=== PATIENT | male | born 1975 | race Caucasian/White ===

== ENCOUNTER 2016-10-01 13:19 | Emergency (ER) | payer SELFPAY ==
[~2016-10-01] VITALS: Wt 95.3 kg
[~2016-10-01 13:19] MED LIST: 'PARAFON FORTE500 M1 PO; AMOXICILLIN500 MG PO; ANAPROX DS550 MG PO; AUGMENTIN 875 M1 TAB PO; AUGMENTIN 875875 MG PO; BENTYL10 MG PO; CELEXA10 MG PO; CELEXA20 MG PO; CEPHALEXIN500 M1 PO; CLARITIN10 MG PO; CLEOCIN HCL150 MG PO; CLINDAMYCIN HC300 MG PO; COMBIVENT1 ARO IH; DAYPRO600 M1 PO; FLEXERIL5 MG PO; HYDROCODONE BIT1 T11 PO; INDERAL10 MG PO; MOTRIN800 MG PO; Motrin,Rufen800 MG PO; NAPROSYN500 MG PO; NORCO 325 MG-51 TAB PO; PEN-VK500 MG PO; PERCOCET 325 MG1 TA2 PO; PREDNISONE20 M1 PO; PRILOSEC20 MG PO; ROBAXIN500 MG PO; ROBAXIN750 MG PO; ROBITUSSIN AC 110 ML PO; TRAMADOL HCL50 MG PO; TRIMOX500 MG PO; ULTRAM50 MG PO; VICODIN 5/500 505 MG PO; VICODIN 500 MG-1 TAB PO; VICODIN ES 7501 TAB PO; VOLTAREN50 M1 PO; VOLTAREN75 MG PO; ZITHROMAX Z PA250 MG PO; ZOFRAN4 MG PO
[2016-10-01 13:23] VITALS: BP 127/85
[2016-10-01] MEDS ORDERED: NAPROSYN500 MG PO ×2 (13:26→13:27)
[2016-10-01] MEDS ORDERED: HYDROCODONE BIT1 T11 PO (14:37)
== END 2016-10-01 14:20 | disposition home or self-care (01) ==
LOC: ED 13:19
DX: S62.306A Unspecified fracture of fifth metacarpal bone, right hand, initial encounter for closed fracture (principal); R03.0 Elevated blood-pressure reading, without diagnosis of hypertension; F17.200 Nicotine dependence, unspecified, uncomplicated; Z98.890 Other specified postprocedural states; W22.8XXA Striking against or struck by other objects, initial encounter; Y93.89 Activity, other specified; Y92.89 Other specified places as the place of occurrence of the external cause; Y99.9 Unspecified external cause status

== ENCOUNTER → 2016-10-04 | Outpatient (CLI) | payer SELFPAY | END | disposition home or self-care (01) | LOC: ORTHO 03:53 | DX: Z46.89 Encounter for fitting and adjustment of other specified devices (principal); S62.306D Unspecified fracture of fifth metacarpal bone, right hand, subsequent encounter for fracture with routine healing; X58.XXXD Exposure to other specified factors, subsequent encounter ==

== ENCOUNTER → 2016-12-05 | Outpatient (CLI) | payer SELFPAY | END | disposition home or self-care (01) | LOC: ORTHO 02:03 | DX: S62.306D Unspecified fracture of fifth metacarpal bone, right hand, subsequent encounter for fracture with routine healing (principal); X58.XXXD Exposure to other specified factors, subsequent encounter ==

== ENCOUNTER → 2016-12-19 | Outpatient (CLI) | payer SELFPAY | END | disposition home or self-care (01) | LOC: ORTHO 02:14 | DX: S62.306D Unspecified fracture of fifth metacarpal bone, right hand, subsequent encounter for fracture with routine healing (principal); X58.XXXD Exposure to other specified factors, subsequent encounter ==

== ENCOUNTER 2017-03-08 20:25 | Emergency (ER) | payer SELFPAY ==
[~2017-03-08] VITALS: Ht 195.5 cm; Wt 95.3 kg
[2017-03-08 20:28] VITALS: BP 157/66
[2017-03-08] MEDS ORDERED: ALLEGRA-D 24 H1 EACH PO (20:45)
[2017-03-08] MEDS ORDERED: AUGMENTIN 875875 MG PO (20:45)
[2017-03-08] MEDS ORDERED: FLONASE ALLERG9.9 ML NAS (20:45)
== END 2017-03-09 01:40 | disposition home or self-care (01) ==
LOC: ED 20:25
DX: J01.90 Acute sinusitis, unspecified (principal); F17.200 Nicotine dependence, unspecified, uncomplicated

== ENCOUNTER 2017-03-29 18:44 | Emergency (ER) | payer SELFPAY ==
[~2017-03-29] VITALS: Ht 195.5 cm; Wt 97.1 kg
[~2017-03-29 18:44] MED LIST changes: +ALLEGRA-D 24 H1 EACH PO; +FLONASE ALLERG9.9 ML NAS
[2017-03-29 18:53] VITALS: BP 141/85
[2017-03-29 19:37] LABS: BASO # 0.1 10*3/uL (0.0-0.1); BASO % 0.7 % (0.0-1.0); EOS # 0.3 10*3/uL (0.0-0.4); EOS % 3.5 % (1.0-4.0); HEMATOCRIT 42.3 % (42.0-52.0); HEMOGLOBIN 14.5 g/dl (14.0-18.0); LYMPH # 3.1 10*3/uL (1.3-4.4); LYMPH % 43.4 % (27.0-41.0); MEAN CELL VOLUME 87.4 fl (80.0-94.0); MEAN CORPUSCULAR HGB CONC 34.3 g/dl (33.0-37.0); MEAN PLATELET VOLUME 9.3 fl (9.6-12.3); MONO # 0.7 10*3/uL (0.1-1.0); MONO % 9.7 % (3.0-9.0); NEUT % 42.6 % (47.0-73.0); PLATELET COUNT AUTOMATED 226 10*3/uL (130-400); RED BLOOD COUNT 4.84 10*6/uL (4.50-5.90); RED CELL DISTRI WIDTH 12.8 % (0-14.5); WHITE BLOOD COUNT 7.1 10*3/uL (4.8-10.8)
[2017-03-29 19:53] LABS: ALBUMIN 3.8 gm/dl (3.1-4.5); ALKALINE PHOSPHATASE 43 U/L (45-117); BUN 11 mg/dl (7-24); CHLORIDE 107 mmol/L (98-107); CREATININE 0.78 mg/dL (0.70-1.30); SGOT/AST 18 IU/L (3-35); SGPT/ALT 23 U/L (12-78); SODIUM 140 mmol/L (136-145); TOTAL PROTEIN 7.1 gm/dL (6.4-8.2)
== END 2017-03-29 20:53 | disposition home or self-care (01) ==
LOC: ED 18:44
PROVIDERS: Physician Assistant
DX: J00 Acute nasopharyngitis [common cold] (principal); F17.200 Nicotine dependence, unspecified, uncomplicated

== ENCOUNTER 2017-08-24 17:02 | Emergency (ER) | payer BC ==
[~2017-08-24] VITALS: Wt 90.7 kg
[2017-08-24 17:03] VITALS: BP 134/81
== END 2017-08-24 18:47 | disposition home or self-care (01) ==
LOC: ED 17:02
DX: S62.666A Nondisplaced fracture of distal phalanx of right little finger, initial encounter for closed fracture (principal); Z98.890 Other specified postprocedural states; Z79.899 Other long term (current) drug therapy; W23.0XXA Caught, crushed, jammed, or pinched between moving objects, initial encounter; Y93.89 Activity, other specified; Y92.89 Other specified places as the place of occurrence of the external cause; Y99.9 Unspecified external cause status

== ENCOUNTER 2017-10-20 15:09 | Emergency (ER) | payer BC ==
[~2017-10-20] VITALS: Ht 195.5 cm; Wt 93.0 kg
[2017-10-20 16:20] VITALS: BP 124/78
[2017-10-20] MEDS ORDERED: NORCO 5-325 TA1 EACH PO (16:35)
== END 2017-10-20 16:50 | disposition home or self-care (01) ==
LOC: ED 15:09
DX: S62.336A Displaced fracture of neck of fifth metacarpal bone, right hand, initial encounter for closed fracture (principal); S62.394A Other fracture of fourth metacarpal bone, right hand, initial encounter for closed fracture; F17.200 Nicotine dependence, unspecified, uncomplicated; Z98.890 Other specified postprocedural states; Z79.899 Other long term (current) drug therapy; W50.0XXA Accidental hit or strike by another person, initial encounter; Y93.89 Activity, other specified; Y92.89 Other specified places as the place of occurrence of the external cause; Y99.9 Unspecified external cause status

== ENCOUNTER 2017-11-30 15:39 | Emergency (ER) | payer SELFPAY ==
[~2017-11-30] VITALS: Ht 195.5 cm; Wt 93.0 kg
--- NOTE | ~2017-11-30 | EKG ---
[place], [place] ELECTROCARDIOGRAM REPORT NAME: CONCHITA SNOWDEN II UNIT #: [id number] ROOM: DOCTOR: LIONEL BARONE MD BIRTHDATE: [birth year] DOS: 11/30/2017 TIME: 1705 hours. Normal sinus rhythm at 59 beats per minute. First-degree heart block. No evidence of ischemia or infarction. No previous tracing is available for comparison. LIONEL BARONE MD CM:EKGRPT:ELECTROCARDIOGRAM REPORT [id number] LIONEL BARONE MD
[~2017-11-30 15:39] MED LIST changes: +NORCO 5-325 TA1 EACH PO
[2017-11-30 17:00] LABS: BASO # 0.1 10*3/uL (0.0-0.1); BASO % 0.7 % (0.0-1.0); EOS # 0.2 10*3/uL (0.0-0.4); EOS % 2.6 % (1.0-4.0); HEMATOCRIT 45.2 % (42.0-52.0); HEMOGLOBIN 15.1 g/dl (14.0-18.0); LYMPH # 2.3 10*3/uL (1.3-4.4); MEAN CELL VOLUME 92.6 fl (80.0-94.0); MEAN CORPUSCULAR HGB 30.9 pg (27.0-31.0); MEAN CORPUSCULAR HGB CONC 33.4 g/dl (33.0-37.0); MEAN PLATELET VOLUME 9.3 fl (9.6-12.3); MONO # 0.7 10*3/uL (0.1-1.0); MONO % 9.6 % (3.0-9.0); NEUT # 3.6 10*3/uL (2.3-7.9); NEUT % 52.8 % (47.0-73.0); PLATELET COUNT AUTOMATED 213 10*3/uL (130-400); RED BLOOD COUNT 4.88 10*6/uL (4.50-5.90); RED CELL DISTRI WIDTH 12.7 % (0-14.5); WHITE BLOOD COUNT 6.9 10*3/uL (4.8-10.8)
[2017-11-30 17:19] LABS: ALBUMIN 4.1 gm/dl (3.1-4.5); ALKALINE PHOSPHATASE 47 U/L (45-117); BUN 18 mg/dl (7-24); CHLORIDE 109 mmol/L (98-107); CREATININE 0.86 mg/dL (0.70-1.30); SGOT/AST 16 IU/L (3-35); SGPT/ALT 24 U/L (12-78); SODIUM 145 mmol/L (136-145); TOTAL PROTEIN 7.4 gm/dL (6.4-8.2)
[2017-11-30 17:22] LABS: TROPONIN I < 0.015 ng/ml (<0.045)
[2017-11-30 18:03] VITALS: BP 119/69
[2017-11-30 18:30] LABS: BILIRUBIN NEGATIVE (NEGATIVE); BLOOD NEGATIVE (NEGATIVE); CLARITY SL CLOUDY (CLEAR); COLOR YELLOW (YELLOW); GLUCOSE NEGATIVE (NEGATIVE); KETONE NEGATIVE (NEGATIVE); LEUKO ESTERASE 1+ (NEGATIVE); NITRITE NEGATIVE (NEGATIVE); PH 7.5 (5.0-9.0); UROBILINOGEN >= 8.0 E.U./dl (0.2-1.0)
[2017-11-30 18:36] LABS: BACTERIA 2+
[2017-11-30 18:37] LABS: MUCOUS TRACE
[2017-11-30 18:39] LABS: URINE AMPHETAMINES < 1000 (1000ng/ml); URINE BARBITURATES < 200 (200ng/ml); URINE BENZODIAZEPINES < 200 (200ng/ml); URINE CANNABINOIDS (THC) > 50 (50ng/ml); URINE COCAINE < 300 (300ng/ml); URINE METHADONE < 300 (300ng/ml); URINE OPIATES < 300 (300ng/ml); URINE PHENCYCLIDINE < 25 (25ng/ml)
== END 2017-11-30 19:05 | disposition home or self-care (01) ==
LOC: ED 15:39
PROVIDERS: Physician Assistant
DX: T67.5XXA Heat exhaustion, unspecified, initial encounter (principal); M62.81 Muscle weakness (generalized); Z98.890 Other specified postprocedural states; Y92.9 Unspecified place or not applicable

== ENCOUNTER 2017-12-14 15:30 | Emergency (ER) | payer SELFPAY ==
[~2017-12-14] VITALS: Ht 195.5 cm; Wt 93.0 kg
[2017-12-14 15:34] VITALS: BP 116/84
[2017-12-14] MEDS ORDERED: ANAPROX DS550 MG PO (16:59)
[2017-12-14] MEDS ORDERED: CEFADROXIL500 M1 PO (16:59)
== END 2017-12-14 17:15 | disposition home or self-care (01) ==
LOC: ED 15:30
DX: M70.42 Prepatellar bursitis, left knee (principal); F17.200 Nicotine dependence, unspecified, uncomplicated; Y93.89 Activity, other specified

== ENCOUNTER 2017-12-22 15:23 | Emergency (ER) | payer SELFPAY ==
[~2017-12-22] VITALS: Ht 195.5 cm; Wt 93.0 kg
[~2017-12-22 15:23] MED LIST changes: +CEFADROXIL500 M1 PO
[2017-12-22 15:25] VITALS: BP 128/95
[2017-12-22] MEDS ORDERED: CHLORZOXAZONE500 M2 PO (15:59)
== END 2017-12-22 16:57 | disposition home or self-care (01) ==
LOC: ED 15:23
DX: M54.5 Low back pain (principal); R03.0 Elevated blood-pressure reading, without diagnosis of hypertension; F17.200 Nicotine dependence, unspecified, uncomplicated; Z98.890 Other specified postprocedural states; X50.0XXA Overexertion from strenuous movement or load, initial encounter; Y93.89 Activity, other specified; Y92.89 Other specified places as the place of occurrence of the external cause; Y99.9 Unspecified external cause status

== ENCOUNTER 2018-03-21 16:58 | Emergency (ER) | payer SELFPAY ==
[~2018-03-21] VITALS: Ht 195.5 cm; Wt 95.3 kg
[~2018-03-21 16:58] MED LIST changes: +CHLORZOXAZONE500 M2 PO; +ROBAXIN500 M1 PO
[2018-03-21 17:00] VITALS: BP 121/73
[2018-03-21] MEDS ORDERED: ANAPROX DS550 MG PO (17:32)
[2018-03-21] MEDS ORDERED: METHOCARBAMOL500 M1 PO (17:32)
== END 2018-03-21 17:51 | disposition home or self-care (01) ==
LOC: ED 16:58
DX: S39.012A Strain of muscle, fascia and tendon of lower back, initial encounter (principal); E66.9 Obesity, unspecified; X58.XXXA Exposure to other specified factors, initial encounter; Y93.89 Activity, other specified; Y92.89 Other specified places as the place of occurrence of the external cause; Y99.8 Other external cause status

== ENCOUNTER 2018-06-26 15:58 | Emergency (ER) | payer SELFPAY ==
[~2018-06-26] VITALS: Ht 195.5 cm; Wt 97.5 kg
[~2018-06-26 15:58] MED LIST changes: +METHOCARBAMOL500 M1 PO
[2018-06-26 16:02] VITALS: BP 142/87
[2018-06-26] MEDS ORDERED: ROBAXIN500 M1 PO (17:51)
[2018-06-26] MEDS ORDERED: MEDROL DOSEPAK4 MG PO (17:51)
[2018-06-26] MEDS ORDERED: NAPROSYN500 MG PO (17:51)
== END 2018-06-26 20:30 | disposition home or self-care (01) ==
LOC: ED 15:58
DX: S39.012A Strain of muscle, fascia and tendon of lower back, initial encounter (principal); W18.39XA Other fall on same level, initial encounter; Y93.89 Activity, other specified; Y92.89 Other specified places as the place of occurrence of the external cause; Y99.8 Other external cause status

== ENCOUNTER → 2018-10-11 | Outpatient (CLI) | payer OTHER ==
[~2018-10-11] MED LIST changes: +MEDROL DOSEPAK4 MG PO; +ROBAXIN-750750 MG PO
== END | disposition home or self-care (01) ==
LOC: RAD 16:40
DX: M54.5 Low back pain (principal); K21.9 Gastro-esophageal reflux disease without esophagitis; F17.200 Nicotine dependence, unspecified, uncomplicated; R10.84 Generalized abdominal pain

== ENCOUNTER 2019-01-20 17:45 | Emergency (ER) | payer SELFPAY ==
[~2019-01-20] VITALS: Ht 195.5 cm; Wt 99.8 kg
[~2019-01-20 17:45] MED LIST changes: -ROBAXIN-750750 MG PO
[2019-01-20 17:46] VITALS: BP 135/85
== END 2019-01-20 19:35 | disposition home or self-care (01) ==
LOC: ED 17:45
DX: S86.911A Strain of unspecified muscle(s) and tendon(s) at lower leg level, right leg, initial encounter (principal); X50.1XXA Overexertion from prolonged static or awkward postures, initial encounter; Y93.72 Activity, wrestling; Y92.89 Other specified places as the place of occurrence of the external cause; Y99.8 Other external cause status

== ENCOUNTER 2019-01-25 14:28 | Emergency (ER) | payer MEDICAID ==
[~2019-01-25] VITALS: Ht 195.5 cm; Wt 99.8 kg
[2019-01-25 14:31] VITALS: BP 113/85
[2019-01-25] MEDS ORDERED: Motrin,Rufen800 MG PO (16:57)
[2019-01-25] MEDS ORDERED: ROBAXIN-750750 MG PO (16:57)
== END 2019-01-25 17:01 | disposition home or self-care (01) ==
LOC: ED 14:28
DX: S46.811A Strain of other muscles, fascia and tendons at shoulder and upper arm level, right arm, initial encounter (principal); F17.200 Nicotine dependence, unspecified, uncomplicated; Z98.890 Other specified postprocedural states; Z79.899 Other long term (current) drug therapy; X50.1XXA Overexertion from prolonged static or awkward postures, initial encounter; Y93.89 Activity, other specified; Y92.89 Other specified places as the place of occurrence of the external cause; Y99.9 Unspecified external cause status

== ENCOUNTER 2019-02-06 10:20 | Emergency (ER) | payer MEDICAID ==
[~2019-02-06] VITALS: Wt 102.1 kg
[~2019-02-06 10:20] MED LIST changes: +ROBAXIN-750750 MG PO
[2019-02-06 10:23] VITALS: BP 115/67
[2019-02-06 10:40] LABS: BASO # 0.1 10*3/uL (0.0-0.1); BASO % 0.6 % (0.0-1.0); EOS # 0.4 10*3/uL (0.0-0.4); EOS % 3.5 % (1.0-4.0); HEMATOCRIT 41.9 % (42.0-52.0); HEMOGLOBIN 14.2 g/dl (14.0-18.0); LYMPH # 2.3 10*3/uL (1.3-4.4); LYMPH % 22.2 % (27.0-41.0); MEAN CELL VOLUME 91.1 fl (80.0-94.0); MEAN CORPUSCULAR HGB 30.9 pg (27.0-31.0); MEAN CORPUSCULAR HGB CONC 33.9 g/dl (33.0-37.0); MONO # 0.8 10*3/uL (0.1-1.0); MONO % 7.6 % (3.0-9.0); NEUT # 6.8 10*3/uL (2.3-7.9); NEUT % 65.8 % (47.0-73.0); PLATELET COUNT AUTOMATED 200 10*3/uL (130-400); RED CELL DISTRI WIDTH 13.1 % (0-14.5); WHITE BLOOD COUNT 10.3 10*3/uL (4.8-10.8)
[2019-02-06 10:53] LABS: ACT PARTIAL THROMBO TIME 28.5 SECONDS (20.0-32.1)
[2019-02-06 10:57] LABS: ALBUMIN 3.7 gm/dl (3.1-4.5); ALKALINE PHOSPHATASE 53 U/L (45-117); BUN 15 mg/dl (7-24); CHLORIDE 108 mmol/L (98-107); CREATININE 0.94 mg/dL (0.70-1.30); LIPASE 67 U/L (73-393); POTASSIUM 3.8 mmol/L (3.5-5.1); SGOT/AST 14 IU/L (3-35); SODIUM 139 mmol/L (136-145)
[2019-02-06 10:59] LABS: SGPT/ALT 22 U/L (12-78)
[2019-02-06 11:36] LABS: BILIRUBIN NEGATIVE (NEGATIVE); BLOOD NEGATIVE (NEGATIVE); CLARITY SL CLOUDY (CLEAR); COLOR YELLOW (YELLOW); GLUCOSE NEGATIVE (NEGATIVE); KETONE NEGATIVE (NEGATIVE); LEUKO ESTERASE NEGATIVE (NEGATIVE); NITRITE NEGATIVE (NEGATIVE); PH 5.5 (5.0-9.0); UROBILINOGEN 0.2 E.U./dl (0.2-1.0)
[2019-02-06 11:44] LABS: URINE AMPHETAMINES < 1000 (1000ng/ml); URINE BARBITURATES < 200 (200ng/ml); URINE BENZODIAZEPINES < 200 (200ng/ml); URINE CANNABINOIDS (THC) > 50 (50ng/ml); URINE COCAINE < 300 (300ng/ml); URINE METHADONE < 300 (300ng/ml); URINE OPIATES < 300 (300ng/ml); WBC 0-2 wbc/hpf (0-5)
[2019-02-06 11:45] LABS: URINE PHENCYCLIDINE < 25 (25ng/ml)
== END 2019-02-06 13:04 | disposition home or self-care (01) ==
LOC: ED 10:20
PROVIDERS: Emergency Medicine
DX: K40.90 Unilateral inguinal hernia, without obstruction or gangrene, not specified as recurrent (principal); F17.200 Nicotine dependence, unspecified, uncomplicated; Z98.890 Other specified postprocedural states; Z79.899 Other long term (current) drug therapy

== ENCOUNTER 2019-05-15 13:10 | Emergency (ER) | payer MEDICAID ==
[~2019-05-15] VITALS: Ht 195.5 cm; Wt 104.3 kg
[2019-05-15 13:53] LABS: BASO # 0.1 10*3/uL (0.0-0.1); BASO % 0.5 % (0.0-1.0); EOS # 0.1 10*3/uL (0.0-0.4); EOS % 0.9 % (1.0-4.0); HEMOGLOBIN 14.8 g/dl (14.0-18.0); LYMPH # 1.6 10*3/uL (1.3-4.4); LYMPH % 15.9 % (27.0-41.0); MEAN CELL VOLUME 90.7 fl (80.0-94.0); MEAN CORPUSCULAR HGB 30.5 pg (27.0-31.0); MEAN CORPUSCULAR HGB CONC 33.6 g/dl (33.0-37.0); MEAN PLATELET VOLUME 9.3 fl (9.6-12.3); MONO # 0.7 10*3/uL (0.1-1.0); MONO % 6.8 % (3.0-9.0); NEUT # 7.5 10*3/uL (2.3-7.9); NEUT % 74.9 % (47.0-73.0); PLATELET COUNT AUTOMATED 246 10*3/uL (130-400); RED BLOOD COUNT 4.85 10*6/uL (4.50-5.90); RED CELL DISTRI WIDTH 12.7 % (0-14.5)
[2019-05-15 14:16] LABS: ALBUMIN 3.9 gm/dl (3.1-4.5); ALKALINE PHOSPHATASE 45 U/L (45-117); BUN 14 mg/dl (7-24); CHLORIDE 108 mmol/L (98-107); CREATININE 0.84 mg/dL (0.70-1.30); LIPASE 53 U/L (73-393); POTASSIUM 3.7 mmol/L (3.5-5.1); SGOT/AST 18 IU/L (3-35); SGPT/ALT 27 U/L (12-78); SODIUM 140 mmol/L (136-145); TOTAL PROTEIN 7.2 gm/dL (6.4-8.2)
[2019-05-15 15:15] VITALS: BP 130/74
== END 2019-05-15 17:15 | disposition left against medical advice (07) ==
LOC: ED 13:10
PROVIDERS: Internal Medicine
DX: R10.84 Generalized abdominal pain (principal); R11.2 Nausea with vomiting, unspecified; R42 Dizziness and giddiness; H53.8 Other visual disturbances; K21.9 Gastro-esophageal reflux disease without esophagitis; F17.200 Nicotine dependence, unspecified, uncomplicated; Z87.442 Personal history of urinary calculi; Z79.899 Other long term (current) drug therapy

== ENCOUNTER 2019-10-07 20:23 | Emergency (ER) | payer SELFPAY ==
[~2019-10-07] VITALS: Ht 195.5 cm; Wt 100.7 kg
[2019-10-07 20:41] VITALS: BP 135/80
== END 2019-10-07 21:40 | disposition home or self-care (01) ==
LOC: ED 20:23
DX: T15.92XA Foreign body on external eye, part unspecified, left eye, initial encounter (principal); K21.9 Gastro-esophageal reflux disease without esophagitis; Z79.899 Other long term (current) drug therapy; X58.XXXA Exposure to other specified factors, initial encounter; Y93.89 Activity, other specified; Y92.89 Other specified places as the place of occurrence of the external cause; Y99.8 Other external cause status

== ENCOUNTER 2020-02-11 12:42 | Emergency (ER) | payer MEDICAID ==
[~2020-02-11] VITALS: Ht 195.5 cm; Wt 99.8 kg
[2020-02-11 12:49] VITALS: BP 121/75
== END 2020-02-11 14:12 | disposition left against medical advice (07) ==
LOC: ED 12:42
DX: R10.9 Unspecified abdominal pain (principal); R19.7 Diarrhea, unspecified; R11.10 Vomiting, unspecified; Z53.21 Procedure and treatment not carried out due to patient leaving prior to being seen by health care provider

== ENCOUNTER 2020-02-27 08:45 | Emergency (ER) | payer MEDICAID ==
[~2020-02-27] VITALS: Ht 195.5 cm; Wt 99.8 kg
[2020-02-27 08:52] VITALS: BP 129/80
[2020-02-27 09:45] LABS: BASO % 0.3 % (0.0-1.0); EOS # 0.2 10*3/uL (0.0-0.4); EOS % 1.8 % (1.0-4.0); HEMATOCRIT 47.3 % (42.0-52.0); LYMPH # 1.7 10*3/uL (1.3-4.4); MEAN CELL VOLUME 88.6 fl (80.0-94.0); MEAN CORPUSCULAR HGB CONC 32.8 g/dl (33.0-37.0); MEAN PLATELET VOLUME 9.2 fl (9.6-12.3); MONO # 0.8 10*3/uL (0.1-1.0); MONO % 9.5 % (3.0-9.0); NEUT # 6.1 10*3/uL (2.3-7.9); NEUT % 69.2 % (47.0-73.0); PLATELET COUNT AUTOMATED 205 10*3/uL (130-400); RED BLOOD COUNT 5.34 10*6/uL (4.50-5.90); RED CELL DISTRI WIDTH 12.5 % (0-14.5); WHITE BLOOD COUNT 8.8 10*3/uL (4.8-10.8)
[2020-02-27 10:04] LABS: ALBUMIN 3.5 gm/dl (3.1-4.5); ALKALINE PHOSPHATASE 63 U/L (45-117); BUN 11 mg/dl (7-24); CHLORIDE 108 mmol/L (98-107); POTASSIUM 3.7 mmol/L (3.5-5.1); SGOT/AST 13 IU/L (3-35); SGPT/ALT 28 U/L (12-78); SODIUM 138 mmol/L (136-145); TOTAL PROTEIN 7.3 gm/dL (6.4-8.2)
[2020-02-27] MEDS ORDERED: ZOFRAN4 MG PO (10:57)
[2020-02-27] MEDS ORDERED: ZITHROMAX250 MG PO (10:57)
== END 2020-02-27 11:02 | disposition home or self-care (01) ==
LOC: ED 08:45
PROVIDERS: Physician Assistant
DX: J40 Bronchitis, not specified as acute or chronic (principal); K21.9 Gastro-esophageal reflux disease without esophagitis

== ENCOUNTER 2020-04-14 18:33 | Emergency (ER) | payer MEDICAID ==
[~2020-04-14] VITALS: Wt 99.8 kg
[~2020-04-14 18:33] MED LIST changes: +ZITHROMAX250 MG PO
[2020-04-14 18:44] VITALS: BP 128/74
[2020-04-14 19:14] LABS: BASO # 0.1 10*3/uL (0.0-0.1); BASO % 0.7 % (0.0-1.0); EOS # 0.4 10*3/uL (0.0-0.4); EOS % 3.7 % (1.0-4.0); HEMATOCRIT 43.2 % (42.0-52.0); LYMPH # 2.7 10*3/uL (1.3-4.4); LYMPH % 27.3 % (27.0-41.0); MEAN CELL VOLUME 89.1 fl (80.0-94.0); MEAN CORPUSCULAR HGB 28.9 pg (27.0-31.0); MEAN CORPUSCULAR HGB CONC 32.4 g/dl (33.0-37.0); MEAN PLATELET VOLUME 8.8 fl (9.6-12.3); MONO # 0.9 10*3/uL (0.1-1.0); MONO % 8.9 % (3.0-9.0); NEUT # 5.7 10*3/uL (2.3-7.9); NEUT % 59.1 % (47.0-73.0); PLATELET COUNT AUTOMATED 212 10*3/uL (130-400); RED BLOOD COUNT 4.85 10*6/uL (4.50-5.90); RED CELL DISTRI WIDTH 12.7 % (0-14.5); WHITE BLOOD COUNT 9.7 10*3/uL (4.8-10.8)
[2020-04-14 19:29] LABS: ALBUMIN 3.4 gm/dl (3.1-4.5); ALKALINE PHOSPHATASE 52 U/L (45-117); BUN 10 mg/dl (7-24); CHLORIDE 109 mmol/L (98-107); CREATININE 0.96 mg/dL (0.70-1.30); POTASSIUM 3.7 mmol/L (3.5-5.1); SGOT/AST 13 IU/L (3-35); SGPT/ALT 22 U/L (12-78); SODIUM 141 mmol/L (136-145); TOTAL PROTEIN 6.9 gm/dL (6.4-8.2)
[2020-04-14 19:57] LABS: BILIRUBIN Negative (Negative); BLOOD Negative (Negative); CLARITY Clear (Clear); COLOR Yellow (Yellow); GLUCOSE Negative (Negative); KETONE Negative (Negative); LEUKO ESTERASE Negative (Negative); NITRITE Negative (Negative); SPECIFIC GRAVITY 1.015 (1.001-1.030)
[2020-04-14 20:18] LABS: BACTERIA TRACE; WBC 0-2 wbc/hpf (0-5)
== END 2020-04-14 22:51 | disposition left against medical advice (07) ==
LOC: ED 18:33
PROVIDERS: Physician Assistant
DX: R10.2 Pelvic and perineal pain (principal); Z53.29 Procedure and treatment not carried out because of patient's decision for other reasons

== ENCOUNTER 2020-09-04 08:39 | Emergency (ER) | payer MEDICAID ==
[~2020-09-04] VITALS: Ht 195.5 cm; Wt 104.3 kg
[2020-09-04 08:45] VITALS: BP 128/61
[2020-09-04] MEDS ORDERED: TEMOVATE30 GM T (08:57)
== END 2020-09-04 09:08 | disposition home or self-care (01) ==
LOC: ED 08:39
DX: L25.9 Unspecified contact dermatitis, unspecified cause (principal); Z98.890 Other specified postprocedural states

== ENCOUNTER 2020-10-28 10:15 | Emergency (ER) | payer MEDICAID ==
[~2020-10-28] VITALS: Ht 195.5 cm; Wt 106.6 kg
[~2020-10-28 10:15] MED LIST changes: +TEMOVATE30 GM T
[2020-10-28 10:19] VITALS: BP 123/89
[2020-10-28] MEDS ORDERED: NAPROXEN500 M1 PO (12:42)
== END 2020-10-28 12:50 | disposition home or self-care (01) ==
LOC: ED 10:15
DX: S46.912A Strain of unspecified muscle, fascia and tendon at shoulder and upper arm level, left arm, initial encounter (principal); Z79.899 Other long term (current) drug therapy; Z98.890 Other specified postprocedural states; X58.XXXA Exposure to other specified factors, initial encounter; Y93.89 Activity, other specified; Y92.89 Other specified places as the place of occurrence of the external cause; Y99.8 Other external cause status

== ENCOUNTER 2021-03-09 13:05 | Emergency (ER) | payer MEDICAID ==
[~2021-03-09] VITALS: Ht 193 cm; Wt 100.7 kg
[~2021-03-09 13:05] MED LIST changes: +NAPROXEN500 M1 PO
[2021-03-09 13:33] VITALS: BP 139/85
[2021-03-09] MEDS ORDERED: CYCLOBENZAPRINE5 M3 PO (17:57)
[2021-03-09] MEDS ORDERED: NAPROSYN500 MG PO (17:57)
== END 2021-03-09 18:09 | disposition home or self-care (01) ==
LOC: ED 13:05
DX: S30.0XXA Contusion of lower back and pelvis, initial encounter (principal); W01.0XXA Fall on same level from slipping, tripping and stumbling without subsequent striking against object, initial encounter; Y93.89 Activity, other specified; Y92.89 Other specified places as the place of occurrence of the external cause; Y99.8 Other external cause status

== ENCOUNTER → 2021-04-20 | Outpatient (CLI) | payer OTHER ==
[~2021-04-20] MED LIST changes: +CYCLOBENZAPRINE5 M3 PO
== END | disposition home or self-care (01) ==
LOC: COVID19 16:20
PROVIDERS: ATTEND Student in an Organized Health Care Education/Training Program
DX: Z11.52 Encounter for screening for COVID-19 (principal)

== ENCOUNTER 2021-06-17 13:23 | Emergency (ER) | payer MEDICAID ==
[~2021-06-17] VITALS: Ht 193 cm; Wt 104.3 kg
[2021-06-17 15:12] LABS: BASO # 0.1 10*3/uL (0.0-0.1); EOS # 0.2 10*3/uL (0.0-0.4); EOS % 2.6 % (1.0-4.0); HEMATOCRIT 44.7 % (42.0-52.0); LYMPH # 2.6 10*3/uL (1.3-4.4); LYMPH % 37.2 % (27.0-41.0); MEAN CELL VOLUME 86.5 fl (80.0-94.0); MEAN CORPUSCULAR HGB 29.8 pg (27.0-31.0); MEAN CORPUSCULAR HGB CONC 34.5 g/dl (33.0-37.0); MEAN PLATELET VOLUME 9.2 fl (9.6-12.3); MONO # 0.7 10*3/uL (0.1-1.0); MONO % 9.6 % (3.0-9.0); NEUT # 3.4 10*3/uL (2.3-7.9); NEUT % 49.5 % (47.0-73.0); PLATELET COUNT AUTOMATED 252 10*3/uL (130-400); RED BLOOD COUNT 5.17 10*6/uL (4.50-5.90); RED CELL DISTRI WIDTH 12.5 % (0-14.5); WHITE BLOOD COUNT 6.9 10*3/uL (4.8-10.8)
[2021-06-17 15:31] LABS: ALKALINE PHOSPHATASE 52 U/L (45-117); BUN 13 mg/dl (7-24); CHLORIDE 108 mmol/L (98-107); CREATININE 0.81 mg/dL (0.70-1.30); POTASSIUM 3.8 mmol/L (3.5-5.1); SGOT/AST 24 IU/L (3-35); SGPT/ALT 26 U/L (12-78); SODIUM 139 mmol/L (136-145); TOTAL PROTEIN 7.5 gm/dL (6.4-8.2)
[2021-06-17] MEDS ORDERED: HYDROCODONE-AC1 EAC1 PO (18:38)
[2021-06-17 18:48] VITALS: BP 141/89
== END 2021-06-17 18:49 | disposition home or self-care (01) ==
LOC: ED 13:23
PROVIDERS: Physician Assistant
DX: K40.90 Unilateral inguinal hernia, without obstruction or gangrene, not specified as recurrent (principal); Z98.890 Other specified postprocedural states

== ENCOUNTER 2021-08-18 18:05 | Emergency (ER) | payer MEDICAID ==
[~2021-08-18] VITALS: Ht 195.5 cm; Wt 98.4 kg
[~2021-08-18 18:05] MED LIST changes: +HYDROCODONE-AC1 EAC1 PO
[2021-08-18 20:34] LABS: BASO % 0.5 % (0.0-1.0); EOS # 0.2 10*3/uL (0.0-0.4); EOS % 2.1 % (1.0-4.0); HEMATOCRIT 46.3 % (42.0-52.0); LYMPH # 1.5 10*3/uL (1.3-4.4); LYMPH % 16.9 % (27.0-41.0); MEAN CORPUSCULAR HGB CONC 33.7 g/dl (33.0-37.0); MEAN PLATELET VOLUME 8.8 fl (9.6-12.3); MONO # 0.6 10*3/uL (0.1-1.0); MONO % 6.4 % (3.0-9.0); NEUT # 6.5 10*3/uL (2.3-7.9); NEUT % 73.9 % (47.0-73.0); PLATELET COUNT AUTOMATED 211 10*3/uL (130-400); RED CELL DISTRI WIDTH 12.7 % (0-14.5); WHITE BLOOD COUNT 8.8 10*3/uL (4.8-10.8)
[2021-08-18 20:50] VITALS: BP 139/88
[2021-08-18 20:54] LABS: ALKALINE PHOSPHATASE 48 U/L (45-117); BUN 18 mg/dl (7-24); CHLORIDE 107 mmol/L (98-107); CREATININE 0.88 mg/dL (0.70-1.30); LIPASE 155 U/L (73-393); POTASSIUM 4.2 mmol/L (3.5-5.1); SGOT/AST 18 IU/L (3-35); SGPT/ALT 28 U/L (12-78); SODIUM 142 mmol/L (136-145)
[2021-08-18 22:49] LABS: BILIRUBIN Negative (Negative); BLOOD Negative (Negative); CLARITY Clear (Clear); COLOR Yellow (Yellow); GLUCOSE Negative (Negative); KETONE Negative (Negative); LEUKO ESTERASE Negative (Negative); NITRITE Negative (Negative); PH 5.5 (4.5-8.0); SPECIFIC GRAVITY >= 1.030 (1.001-1.030)
[2021-08-18 23:00] LABS: WBC 0-2 wbc/hpf (0-5)
== END 2021-08-18 23:10 | disposition home or self-care (01) ==
LOC: ED 18:05
PROVIDERS: Physician Assistant
DX: K46.9 Unspecified abdominal hernia without obstruction or gangrene (principal); Z98.890 Other specified postprocedural states